=== PATIENT | male | born 1985 | race African-American/Black ===

== ENCOUNTER 2017-03-04 15:24 | Emergency (ER) | payer BC ==
[~2017-03-04] VITALS: Ht 170.2 cm; Wt 90.7 kg
[2017-03-04 15:27] VITALS: BP 134/84
[2017-03-04] MEDS ORDERED: FLUORESCEIN OPHTH TEST STRIP. OU ONE (15:45)
[2017-03-04] MEDS ORDERED: TETRACAINE 0.5% OPHTH SOLUTION 4ML BOTTLE. OU ONE (15:45)
[2017-03-04] MEDS ORDERED: ERYT1OIN6 EACHEYE (16:01)
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
== END 2017-03-04 16:05 | disposition home or self-care (01) ==
LOC: ER 15:24
DX: S05.01XA Injury of conjunctiva and corneal abrasion without foreign body, right eye, initial encounter (principal); M25.561 Pain in right knee; G89.29 Other chronic pain; W22.8XXA Striking against or struck by other objects, initial encounter; Y93.89 Activity, other specified; Y92.89 Other specified places as the place of occurrence of the external cause; Y99.8 Other external cause status
CPT/HCPCS: 99283